=== PATIENT | male | born 1980 | race Caucasian/White ===

== ENCOUNTER 2021-02-16 15:53 | Emergency (ER) | payer OTHER ==
[~2021-02-16] VITALS: Ht 177.8 cm; Wt 81.8 kg
[2021-02-16 15:57] VITALS: BP 174/96
[2021-02-16] MEDS ORDERED: ACETAMINOPHEN 500 MG TAB PO ONE (16:05)
[2021-02-16] MEDS ORDERED: PEPC1TAB5 PO (16:06)
[2021-02-16] MEDS ORDERED: LOPE1CAP5 (16:06)
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
== END 2021-02-16 17:06 | disposition home or self-care (01) ==
LOC: M ED 15:53
DX: S20.213A Contusion of bilateral front wall of thorax, initial encounter (principal); V49.59XA Passenger injured in collision with other motor vehicles in traffic accident, initial encounter; Y92.410 Unspecified street and highway as the place of occurrence of the external cause